=== PATIENT | female | born 1970 | race Caucasian/White ===

== ENCOUNTER 2024-06-21 09:40 | Outpatient (CLI) | payer BC | END 2024-06-21 09:41 | disposition home or self-care (01) | LOC: CSHLAB 09:40 | PROVIDERS: ATTEND Surgery | DX: Z01.818 Encounter for other preprocedural examination (principal); K82.9 Disease of gallbladder, unspecified | CPT/HCPCS: 93005; 93010 ==

== ENCOUNTER 2024-06-23 06:12 | Day surgery (SDC) | payer BC ==
[2024-06-21 09:53] VITALS: BMI 20.9
[2024-06-23] MEDS ORDERED: Bupivacaine HCl 0.5%/Epinephrine 1:200,000/PF 30 ml Vial ONE (06:48)
[2024-06-23] MEDS ORDERED: fentaNYL 50 mcg/mL 1 mL Vial ONE ×2 (07:21→09:19)
[2024-06-23] MEDS ORDERED: PROPOFOL 20 ML ONE (07:21)
[2024-06-23] MEDS ORDERED: CEFAZOLIN 2 GM VIAL ONE (08:02)
[2024-06-23] MEDS ORDERED: diphenhydrAMINE 50 MG/ML VIAL ONE (08:16)
[2024-06-23] MEDS ORDERED: Ondansetron PF 4 MG/2 ML Vial ONE ×2 (08:16→09:44)
[2024-06-23] MEDS ORDERED: Rocuronium Bromide 10 MG/ML (10ML VIAL) ONE (08:16)
[2024-06-23] MEDS ORDERED: Dexamethasone 4 mg/ml Vial ONE (08:16)
[2024-06-23] MEDS ORDERED: Ketorolac Tromethamine 30 MG (1 mL) VIAL ONE (08:39)
[2024-06-23] MEDS ORDERED: SUGAMMADEX SODIUM 200 MG/2 ML VIAL ONE (08:39)
[2024-06-23] MEDS ORDERED: HYDROcodone/Acetaminophen 5/325 mg Tablet ONE (10:05)
== END 2024-06-23 10:45 | disposition home or self-care (01) ==
LOC: CSHSDC 06:12
PROVIDERS: ATTEND Surgery
PROC: 0FT44ZZ Resection of Gallbladder, Percutaneous Endoscopic Approach (ICD-10-PCS; principal; 2024-06-23)
DX: K81.1 Chronic cholecystitis (principal); K82.8 Other specified diseases of gallbladder; Z91.011 Allergy to milk products; Z91.018 Allergy to other foods; Z79.899 Other long term (current) drug therapy
CPT/HCPCS: 88304; C1889; J1100; J1200; J1885; J2405; J2704; J3010

== ENCOUNTER 2025-05-23 13:14 | Outpatient (CLI) | payer BC | END 2025-05-23 13:15 | disposition home or self-care (01) | LOC: CSHMAMMO 13:14 | PROVIDERS: ATTEND Nurse Practitioner Family | DX: Z12.31 Encounter for screening mammogram for malignant neoplasm of breast (principal); Z80.3 Family history of malignant neoplasm of breast | CPT/HCPCS: 77063; 77067 ==